=== PATIENT | male | born 1950 ===

== ENCOUNTER 2017-09-08 11:42 | Emergency (ER) | payer MEDICARE ==
[2017-09-08 12:15] VITALS: RESP 18; O2SAT 98
[2017-09-08] MEDS ORDERED: Sodium Chloride 0.9% 1,000 ML IV STA (12:35)
--- NOTE | 2017-09-08 12:56 | ED PDOC ---
Syncope/Near Syncope/Dizziness Time Seen by Provider: 09/08/17 12:04 Chief Complaint (Nursing): Dizziness/Lightheaded Chief Complaint (Provider): Dizziness History Per: Patient History/Exam Limitations: no limitations Onset/Duration Of Symptoms: Days Current Symptoms Are (Timing): Still Present Additional Complaint(s): Pt. with dizziness like room spinning at 3am. He took 1 pill of viagra 5-6 hrs prior to the dizziness. He has not taken it for a long time. Woke up and the room spinning was gone, but had light-headedness. No numbness, tingles, chest pain, dyspnea, neck pain, weakness, or any other symptoms. No vision changes. Has no medical issues and takes a herbal prostate med for a long time. Past Medical History Reviewed: Nursing Documentation, Vital Signs Vital Signs: Last Vital Signs Temp 98 F 09/08/17 12:07 Pulse 74 09/08/17 12:07 Resp 18 09/08/17 12:07 BP 129/84 09/08/17 12:07 Pulse Ox 98 09/08/17 12:07 - Medical History Other PMH: ? prostate issues - Surgical History Surgical History: No Surg Hx - Family History Family History: States: Unknown Family Hx - Social History Current smoker - smoking cessation education provided: No Alcohol: None Drugs: Denies - Home Medications Home Medications: Ambulatory Orders Medication Instructions Recorded No Known Home Med 03/22/16 - Allergies Allergies/Adverse Reactions: Allergies Allergy/AdvReac Type Severity Reaction Status Date / Time No Known Allergies Allergy Verified 03/22/16 08:03 Review of Systems ROS Statement: Except As Marked, All Systems Reviewed And Found Negative Neurological: Positive for: Dizziness Physical Exam - Reviewed Nursing Documentation Reviewed: Yes Vital Signs Reviewed: Yes - Physical Exam Appears: Positive for: Non-toxic, No Acute Distress Head Exam: Positive for: ATRAUMATIC, NORMAL INSPECTION, NORMOCEPHALIC Skin: Positive for: Normal Color, Warm, DRY Eye Exam: Positive for: EOMI, Normal appearance, PERRL ENT: Positive for: Normal ENT Inspection Neck: Positive for: Normal, Painless ROM Cardiovascular/Chest: Positive for: Regular Rate, Rhythm Respiratory: Positive for: CNT, Normal Breath Sounds Gastrointestinal/Abdominal: Positive for: Normal Exam, Bowel Sounds, Soft. Negative for: Tenderness Back: Positive for: Normal Inspection. Negative for: L CVA Tenderness, R CVA Tenderness Extremity: Positive for: Normal ROM. 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 Negative for: Motor/Sensory Deficits, Facial Droop - Laboratory Results Result Diagrams: 09/08/17 12:53 09/08/17 12:53 Interpretation Of Abn Labs: no acute - ECG ECG: Positive for: Interpreted By Me, Viewed By Me ECG Rhythm: Positive for: Normal QRS, Normal ST Segment, Sinus Rhythm O2 Sat by Pulse Oximetry: 98 Pulse Ox Interpretation: Normal - Radiology X-Ray: Read By Radiologist X-Ray Interpretation: No Acute Disease - CT Scan/US ct Other Rad Studies (CT/US): Read By Radiologist Other Rad Interpretation: no acute - Progress ED Course And Treament: 1538: Stable. AAOx3. Pain free. Ambulating. Walking with no issues. Tolerated PO with no issues. Disposition - Clinical Impression Clinical Impression: Dizziness - Patient ED Disposition Is Patient to be Admitted: No Counseled Patient/Family Regarding: Studies Performed, Diagnosis, Need For Followup - Disposition Referrals: [facility] [Outside] - 09/09/17 Disposition: Routine/Home Disposition Time: 15:39 Condition: STABLE Additional Instructions: Return if not better in days. Instructions: Dizziness, Nonvertigo, (DC)
[2017-09-08 13:09] LABS: INR 0.9 (0.9-1.2); PARTIAL THROMBOPLASTIN TIME 34.5 Seconds (25.6-37.1); PROTHROMBIN TIME 10.3 Seconds (9.8-13.1)
[2017-09-08 13:11] LABS: ALB/GLOB RATIO 1.4 (1.0-2.1); ALBUMIN 4.2 g/dL (3.5-5.0); ALT/SGPT 33 U/L (21-72); AST/SGOT 32 U/L (17-59); BASO # 0.1 K/uL (0.0-0.2); BASO % 0.7 % (0.0-2.0); BLOOD UREA NITROGEN 16 mg/dl (9-20); CALCIUM 9.2 mg/dL (8.4-10.2); EOS # 0.1 K/uL (0.0-0.7); EOS % 0.9 % (0.0-4.0); GFR AFRICAN-AMERICAN > 60; GFR NON-AFRICAN AMERICAN > 60; HEMOGLOBIN 13.8 g/dL (12.0-18.0); LYMPH # 1.9 K/uL (1.0-4.3); LYMPH % 24.2 % (20.0-40.0); MEAN CELL VOLUME 88.6 fl (80.0-94.0); MEAN CORPUSCULAR HEMOGLOBIN 29.1 pg (27.0-31.0); MEAN CORPUSCULAR HGB CONC 32.9 g/dL (33.0-37.0); MEAN PLATELET VOLUME 7.3 fl (7.2-11.7); MONO # 0.6 K/uL (0.0-0.8); MONO % 8.1 % (0.0-10.0); NEUT # 5.2 K/uL (1.8-7.0); NEUT % 66.1 % (50.0-75.0); NRBC % 0.2 % (0.0-0.0); RBC 4.73 Mil/uL (4.40-5.90); RED CELL DISTRIBUTION WIDTH 13.5 % (11.5-14.5); WHITE BLOOD COUNT 7.9 K/uL (4.8-10.8)
--- NOTE | 2017-09-08 13:44 | RAD ---
HISTORY: dizziness COMPARISON: 07/22/2012 FINDINGS: LUNGS: No active pulmonary disease. PLEURA: No significant pleural effusion identified, no pneumothorax apparent. CARDIOVASCULAR: Normal. OSSEOUS STRUCTURES: No significant abnormalities. VISUALIZED UPPER ABDOMEN: Normal. OTHER FINDINGS: None. IMPRESSION: No active disease. No significant interval change compared to the prior examination(s).
--- NOTE | 2017-09-08 15:07 | CT ---
PROCEDURE: CT HEAD WITHOUT CONTRAST. HISTORY: Headache COMPARISON: None available. TECHNIQUE: Axial computed tomography images were obtained through the head/brain without intravenous contrast. Radiation dose: Total exam DLP = 932.9 mGy-cm. This CT exam was performed using one or more of the following dose reduction techniques: Automated exposure control, adjustment of the mA and/or kV according to patient size, and/or use of iterative reconstruction technique. FINDINGS: HEMORRHAGE: No acute parenchymal, subarachnoid or extraaxial hemorrhage. BRAIN: No evidence of large acute infarct. There is a small low-attenuation focus in the region of the posterior aspect anterior limb left internal capsule may represent a tiny tiny chronic infarct. There is also a more discrete elliptical shaped focus of very low attenuation left inferior lateral basal ganglia likely representing a dilated perivascular space. Questionable minimal chronic periventricular white matter ischemic changes. Mild generalized volume loss. Mild vascular calcifications both carotid siphons. VENTRICLES: No obstructive hydrocephalus. CALVARIUM: . Calvarium appears intact. PARANASAL SINUSES: Unremarkable as visualized. No significant inflammatory changes. MASTOID AIR CELLS: Unremarkable as visualized. No inflammatory changes. OTHER FINDINGS: None. IMPRESSION: No acute parenchymal, subarachnoid or extraaxial hemorrhage. Suspect minimal chronic periventricular white matter ischemic changes. 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 Probable dilated perivascular space left inferolateral basal ganglia. Mild generalized volume loss.
[2017-09-08 16:04] VITALS: BP 128/78; PULSE 78; TEMP 97
--- NOTE | 2017-09-09 19:15 | CARD ---
APPROVED REPORT EKG Measurement Heart [id number] <Conclusion> Normal sinus rhythm Normal ECG
== END 2017-09-08 16:03 | disposition home or self-care (01) ==
LOC: H.ER 11:42
DX: R42 Dizziness and giddiness (principal)
CPT/HCPCS: 70450; 71045; 80053; 84484; 85025; 85610; 85730; 93005; 99283; J7040